=== PATIENT | female | born 1980 | race Caucasian/White ===

== ENCOUNTER → 2020-06-25 | Outpatient (CLI) | payer OTHER ==
[~2020-06-25] MED LIST: AMOXICILLIN500 M1 PO; ANTIPYRINE-BENZ14 ML OT; AVELOX400 MG PO; COUGH & COLD T1 EACH PO; DIFLUCAN150 MG PO; DIPHENHYDRAMINE25 M4 PO; IBUPROFEN 200200 M1 PO; MEDROL DOSPAK21 TAB PO; MEDROLDOSEPACK PO; NOHOMEMEDICATIONS; NORCO 5-325 TA1 EACH PO; PREDNISONE 20 M20 MG PO; PREDNISONE50 MG PO; PROMETHAZINE-C120 ML PO; PROVENTIL HFA6.7 G1 INH; TESSALON200 MG PO; VENTOLIN HFA 1818 GM INH; VISTARIL 25 MG25 M1 PO; ZPAK PO
== END ==
LOC: RAD 15:17
DX: Z13.6 Encounter for screening for cardiovascular disorders (principal); I25.10 Atherosclerotic heart disease of native coronary artery without angina pectoris; E78.00 Pure hypercholesterolemia, unspecified